=== PATIENT | male | born 1965 | race Caucasian/White ===

== ENCOUNTER → 2016-10-27 | Day surgery (SDC) | payer OTHER ==
[2016-10-14 10:33] VITALS: Ht 182.9 cm; Wt 86.4 kg
[~2016-10-27] VITALS: Ht 182.9 cm; Wt 86.4 kg
[~2016-10-27] MED LIST: LIDOCAINE HCL 2% 2 ML VIAL (20MG/ML) ONE; PROPOFOL IV EMULSION 10 MG/ML 20 ML VIAL IV ONE; SODIUM CHLORIDE 0.9% 500ML 500 ML IV ONE
--- NOTE | 2016-10-27 13:47 | Endo History and Physical ---
History & Physical Date of Service: Oct 27, 2016. Chief Complaint: Screening Referring Physician: Sonny Broussard History of Present Illness 51 yo CM who presents for screening colonoscopy. Past Surgical History Hx Cardiac Surgery: No Hx Internal Defibrillator: No Hx Pacemaker: No Hx Abdominal Surgery: No Hx of Implantable Prosthesis: No Hx Post-Op Nausea and Vomiting: No Hx Cancer Surgery: Yes (FOREHEAD SKIN EXCISION) Hx Thoracic Surgery: No Hx Orthopedic: Yes (RT KNEE MENISCUS REPAIR) Hx Urinary Tract Surgery: No Family History Polyp Social History Smoking Status: Never Smoker Hx Substance Use: No Hx Alcohol Use: Yes (OCCASSIONALLY) Allergies Coded Allergies: No Known Allergies (Unverified , 10/14/16) Current Medications Reported Home Medications Medications Dose Route/Sig Max Daily Dose Days Date Category No Active Prescriptions or Reported Medications Rx Vital Signs Weight (Kilograms): 86.36 Height (Feet): 6 Height (Inches): 0 Date Time Temp Pulse Resp B/P Pulse Ox O2 Delivery O2 Flow Rate FiO2 10/27/16 13:28 36.8 55 18 125/72 99 Room Air Physical Exam General Appearance: WD/WN, no apparent distress Respiratory/Chest: Auscultation: breath sounds normal Cardiovascular: Heart Auscultation: RRR Abdomen: Bowel Sounds: normal Inspection & Palpation: soft, non-distended, no tenderness, guarding & rebound Assessment and Plan Assessment: 51 yo CM who presents for screening colonoscopy. Plan: Proceed with colonoscopy.
--- NOTE | 2016-10-27 14:07 | Discharge Instructions ---
Endoscopy Patient Instructions Date / Procedure(s) Performed Oct 27, 2016. Colonoscopy Allergy Information Coded Allergies: No Known Allergies (Unverified , 10/14/16) Discharge Date / Findings Oct 27, 2016. Colon polyp Medication Instructions Reported Home Medications Medications Dose Route/Sig Max Daily Dose Days Date Category No Active Prescriptions or Reported Medications Rx Provider Instructions Activity Restrictions - No exercising or heavy lifting for 24 hours. - Do not drink alcohol the day of the procedure. - Do not drive a car or operate machinery until the day after the procedure. - Do not make any important decisions or sign important papers in 24 hours after the procedure. Following Day: - Return to full activity which may include returning to work/school. Diet Start your diet with liquids and light foods (jello, soup, juice, toast). Then eat your usual diet if not nauseated. Treatment For Common After Affects For mild abdominal pain, bloating, or excessive gas: - Rest - Eat lightly - Lie on right side Follow-Up Information Follow-up with Sonny Broussard as scheduled Anesthesia Information What You Should Know You have had a procedure that required some medicine to reduce anxiety and discomfort. This treatment is called moderate sedation. After receiving the treatment, you may be sleepy, but you will be able to breathe on your own. The effects of the treatment may last for several hours. Follow these instructions along with Activity/Diet recommendations noted above: * Do NOT do anything where dizziness or clumsiness would be dangerous. * Rest quietly at home today, then you can be up and about tomorrow. * Have a responsible person stay with you the rest of today. * You may have had an I.V. today. If so, you may take the dressing off later today. Recommendations Call your doctor if: * Trouble breathing * Continuous vomiting for more than 24 hours * Temperature above 101 degrees * Severe abdominal pain or bloating * Pain not relieved by pain medicine ordered * There is increased drainage or redness from any incision * A large amount of rectal bleeding greater than 2-3 tablespoons. (If you had a polyp/s removed or have hemorrhoids, a small amount of blood - from the rectum is to be expected.) * You have any unanswered questions or concerns. IN THE EVENT OF A SERIOUS EMERGENCY, GO TO THE NEAREST EMERGENCY ROOM Your discharge instructions were prepared by provider Armando Garg. Patient Instructions Signature Page Terell Isaacs Patient (or Guardian) Signature/Date: I have read and understand the instructions given to me by my caregivers. Caregiver/RN/Doctor Signature/Date: The above-named patient and/or guardian has received patient instructions on this date. + Original Patient Signature Page (only) stays with chart. Please make copy for patient.
--- NOTE | 2016-10-27 14:15 | GI REPORT ---
Procedure Date: 10/27/2016 1:37 PM Procedure: Colonoscopy Indications: Screening for colorectal malignant neoplasm Medicines: Monitored Anesthesia Care Complications: No immediate complications. Estimated Blood Loss: Estimated blood loss: none. Procedure: Pre-Anesthesia Assessment: - Prior to the procedure, a History and Physical was performed, and patient medications and allergies were reviewed. The patient's tolerance of previous anesthesia was also reviewed. The risks and benefits of the procedure and the sedation options and risks were discussed with the patient. All questions were answered, and informed consent was obtained. Prior Anticoagulants: The patient has taken no previous anticoagulant or antiplatelet agents. ASA Grade Assessment: I - A normal, healthy patient. After reviewing the risks and benefits, the patient was deemed in satisfactory condition to undergo the procedure. After I obtained informed consent, the scope was passed under direct vision. Throughout the procedure, the patient's blood pressure, pulse, and oxygen saturations were monitored continuously. The On-site loaner was introduced through the anus and advanced to the terminal ileum. The colonoscopy was performed without difficulty. The patient tolerated the procedure well. The quality of the bowel preparation was good. The terminal ileum, ileocecal valve, appendiceal orifice, and rectum were photographed. Findings: The perianal and digital rectal examinations were normal. Pertinent negatives include normal sphincter tone, no palpable rectal lesions, normal prostate (size, shape, and consistency) and no anal lesion or abnormality was detected. A 7 mm polyp was found in the descending colon. The polyp was sessile. The polyp was removed with a hot snare. Resection and retrieval were complete. The exam was otherwise without abnormality. Impression: - One 7 mm polyp in the descending colon, removed with a hot snare. Resected and retrieved. - The examination was otherwise normal. Recommendation: - Resume previous diet. - Continue present medications. - Repeat colonoscopy for surveillance based on pathology results. - Return to primary care physician as previously scheduled. Armando Garg DO 10/27/2016 2:15:26 PM This report has been signed electronically. Note Initiated On: 10/27/2016 1:37 PM I attest to the content of the Intraoperative Record and orders documented therein, exceptions below
--- NOTE | 2016-10-27 14:34 | Anesthesiology Progress Note ---
Anesthesia Post Op Note Date & Time Oct 27, 2016 at 14:34 Vital Signs Pain Intensity: 0 Vital Signs Past 12 Hours Date Time Temp Pulse Resp B/P Pulse Ox O2 Delivery O2 Flow Rate FiO2 10/27/16 14:25 46 16 109/67 96 Room Air 10/27/16 14:10 59 16 89/57 99 Room Air 10/27/16 13:28 36.8 55 18 125/72 99 Room Air Notes Mental Status: alert / awake / arousable, participated in evaluation Pt Amnestic to Procedure: Yes Nausea / Vomiting: adequately controlled Pain: adequately controlled Airway Patency, RR, SpO2: stable & adequate BP & HR: stable & adequate Hydration State: stable & adequate Anesthetic Complications: no major complications apparent
[2016-10-27 14:40] VITALS: BP 100/76; PULSE 46; O2SAT 98
== END | disposition home or self-care (01) ==
LOC: C.GI 13:08
PROVIDERS: ATTEND Internal Medicine
DX: Z12.11 Encounter for screening for malignant neoplasm of colon (principal); D12.4 Benign neoplasm of descending colon; Z98.890 Other specified postprocedural states; Z68.26 Body mass index [BMI] 26.0-26.9, adult; Z85.828 Personal history of other malignant neoplasm of skin; Z83.71 Family history of colonic polyps

== ENCOUNTER → 2016-11-21 | Outpatient (CLI) | payer OTHER ==
[2016-11-21 15:01] LABS: BLOOD UREA NITROGEN 20 mg/dl (7-18); BUN/CREATININE RATIO 18.2 (10-20); CALCIUM 9.4 mg/dl (8.5-10.1); CARBON DIOXIDE 30 mmol/L (21-32); CHLORIDE 105 mmol/L (98-107); GLUCOSE 101 mg/dl (70-99); POTASSIUM 4.3 mmol/L (3.5-5.1); SODIUM 139 mmol/L (136-145)
== END | disposition home or self-care (01) ==
LOC: C.LABBC 11:52
PROVIDERS: ATTEND Internal Medicine Geriatric Medicine
DX: R00.1 Bradycardia, unspecified (principal)

== ENCOUNTER → 2017-08-06 | Outpatient (CLI) | payer OTHER ==
[2017-08-06 16:04] LABS: BLOOD UREA NITROGEN 21 mg/dl (7-18); CREATININE 0.93 mg/dl (0.60-1.40); GLUCOSE 101 mg/dl (70-99)
[2017-08-06 16:05] LABS: CALCIUM 8.9 mg/dl (8.5-10.1); CARBON DIOXIDE 24 mmol/L (21-32); CHOLESTEROL 166 mg/dl (0-200); LDL CHOLESTEROL CALCULATED 77 mg/dl; POTASSIUM 4.1 mmol/L (3.5-5.1); SODIUM 138 mmol/L (136-145)
== END | disposition home or self-care (01) ==
LOC: C.LABBC 10:26
PROVIDERS: ATTEND Internal Medicine Geriatric Medicine
DX: Z00.00 Encounter for general adult medical examination without abnormal findings (principal); R00.1 Bradycardia, unspecified; E78.5 Hyperlipidemia, unspecified; R35.0 Frequency of micturition

== ENCOUNTER → 2017-09-11 | Outpatient (CLI) | payer OTHER | END | disposition home or self-care (01) | LOC: C.LABBC 10:15 | PROVIDERS: ATTEND Internal Medicine Geriatric Medicine | DX: E78.5 Hyperlipidemia, unspecified (principal); R00.1 Bradycardia, unspecified; R35.0 Frequency of micturition; Z00.00 Encounter for general adult medical examination without abnormal findings ==

== ENCOUNTER → 2017-11-05 | Outpatient (CLI) | payer OTHER | END | disposition home or self-care (01) | LOC: C.LABBC 10:39 | PROVIDERS: ATTEND Urology | DX: R97.20 Elevated prostate specific antigen [PSA] (principal) ==

== ENCOUNTER 2022-01-31 17:59 | Observation (INO) ==
[2022-01-31] MEDS ORDERED: SODIUM CHLORIDE 0.9% 1000ML 1,000 ML IV ONE ×2 (18:06→19:31)
--- NOTE | 2022-01-31 18:06 | ED Triage Note ---
Date of Service January 31, 2022 History of Present Illness This patient was briefly evaluated while in triage. An abbreviated physical exam was performed. This patient is a 56-year-old Male with past medical history of dyslipidemia who presents to the ED for evaluation of extremely sore muscles, difficulty lifting arms, cloudy, dark urine x1, chills, and sweats. Pt. states he worked out hard 2 days ago for the first time in a month. Also having Right great toe pain. Physical Exam VITALS: Vitals are noted on the nurse's note and reviewed by myself. GENERAL: This is a 56 year old male, in no acute distress, nondiaphoretic, well- developed well-nourished. SKIN: The skin was without rashes, erythema, edema, or bruising. There is no tenting of the skin. Capillary refill less than 2 seconds. HEAD: Normocephalic atraumatic. MOUTH: Mucous membranes moist. NECK: Supple without nuchal rigidity. No JVD. MUSCULOSKELETAL: No muscle atrophy, erythema, or edema noted. Full range of motion without joint tenderness in all extremities. Normal gait. NEURO: Patient was alert and oriented to person place and time. No focal neurological deficits. Initial orders for labs and / or imaging were placed and patient was placed in the waiting area until a bed is available. Please see further documentation for the full ED course.
[2022-01-31 19:18] LABS: Appearance Urine Clear (Clear); Bacteria Urine Automated Negative (Negative); Bilirubin Urine Negative (Negative); Blood Urine 3+ (Negative); Color Urine Dark Yellow; Epithelial Cell Urine Auto 20-30 /lpf (0-5); Glucose Urine UA Negative (Negative); Ketones Urine Trace (Negative); Leukocyte Esterase Urine Negative (Negative); Nitrite Urine Negative (Negative); Protein Urine 3+ (Negative); Specific Gravity Urine 1.035 (1.000-1.030); Urobilinogen Urine Negative (Negative)
--- NOTE | 2022-01-31 19:40 | XRay Report ---
XR chest 1V portable CLINICAL HISTORY: Weakness COMPARISON STUDY: Chest radiograph June 14, 2021. FINDINGS: Lung volumes are normal. Lungs are clear. There is no pneumothorax or pleural effusion. Car diac size is normal. Mediastinal contours are normal. There is no evidence for pulmonary edema. IMPRESSION: No acute cardiopulmonary findings. ACT 112: Negative or not required by law. Electronically signed by: Bernardino Hamilton M.D. 01/31/2022 7:39 PM
[2022-01-31] MEDS ORDERED: SODIUM CHLORIDE 0.9% 1000ML 1,000 ML IV SCH (19:45)
[2022-01-31 19:46] LABS: Troponin I High Sensitivity 13.9 pg/ml (0-20)
[2022-01-31 19:48] LABS: BUN Creatinine Ratio 14.2 (10-20); Calcium 8.4 mg/dl (8.5-10.1); Creatinine Clr Calc Pharmacy 81.1 ml/min; Est GFR (African American) 84.3 ml/min; Est GFR (Non-African American) 72.8 ml/min; Potassium 3.8 mmol/L (3.5-5.1)
[2022-01-31 19:50] LABS: Basophils # (auto) 0.01 K/uL (0-0.2); Basophils % (auto) 0.3 %; Hemoglobin 14.1 g/dL (14.0-18.0); Lymphocytes # (auto) 0.49 K/uL (1.2-3.4); Lymphocytes % (auto) 12.7 %; Mean Corpuscular Hemoglobin 29.7 pg (25-34); Mean Corpuscular Hgb Conc 34.4 g/dL (32-36); Mean Corpuscular Volume 86.3 fL (80-100); Mean Platelet Volume 10.5 fL (7.4-10.4); Monocytes # (auto) 0.26 K/uL (0.11-0.59); Monocytes % (auto) 6.8 %; Neutrophils # (auto) 3.09 K/uL (1.4-6.5); Neutrophils % (auto) 80.2 %; Platelet Count 141 K/uL (130-400); RDW Coefficient of Variation 14.2 % (11.5-14.5); RDW Standard Deviation 44.8 fL (36.4-46.3); Red Blood Count 4.75 M/uL (4.7-6.1); White Blood Count 3.85 K/uL (4.8-10.8)
[2022-01-31 20:00] LABS: Albumin Globulin Ratio 1.5 (0.9-2); Bilirubin,Total 0.5 mg/dl (0.2-1.0); Globulin 2.7 gm/dl (2.5-4.0); Total Protein 6.7 gm/dl (6.0-8.3)
--- NOTE | 2022-01-31 20:15 | CT Scan Report ---
CT OF THE ABDOMEN AND PELVIS WITHOUT CONTRAST CLINICAL HISTORY: Left flank pain. Hematuria and fever. COMPARISON STUDY: No previous studies for comparison. TECHNIQUE: Axial images of the abdomen and pelvis were obtained without IV contrast. Images were revi ewed in the axial, sagittal, and coronal planes. Automated exposure control was utilized for the shaun dy. A dose lowering technique was utilized adhering to the principles of ALARA. FINDINGS: Lung bases are unremarkable. No renal, ureteral or bladder calculi are present. There is no hydronephrosis or hydroureter. Mild bladder wall thickening is noted. Evaluation of the remainder of the abdomen and pelvis is suboptimal on this unenhanced exam. Liver, spleen, adrenal glands and panc reas are unremarkable. There is no biliary or pancreatic ductal dilatation. There is no peripancreati c or pericholecystic infiltration. The appendix is normal. There is no evidence for a bowel obstructi on. No lymphadenopathy is present. There is no ascites. No acute fracture or suspicious lesion is jose de jesus ntified within the visualized skeletal structures. IMPRESSION: 1. No urinary calculi or hydronephrosis. 2. Bladder wall thickening, a nonspecific finding which could be correlated with urinalysis. 3. No bowel obstruction. No bowel wall thickening on unenhanced exam. ACT 112: Negative or not required by law. Electronically signed by: Bernardino Hamilton M.D. 01/31/2022 8:12 PM
[2022-01-31] MEDS ORDERED: ACETAMINOPHEN 500 MG TAB PO STA (20:59)
--- NOTE | 2022-01-31 20:59 | Emergency Department Note ---
History of Present Illness General Chief complaint: Illness Stated complaint: SHAKES, MUSCLE ACHES, CLOUDY URINE Time Seen by Provider: 01/31/22 19:23 History of Present Illness Provider complaint: Myalgias Onset (ago): day(s) 2 Maximum Pain Intensity: 2 Associated symptoms: + fever/chills, + malaise and + nausea/vomiting; no cough, no headaches or no shortness of breath 56-year-old male presents emergency department for myalgias. Patient reports that on Thursday he worked out after a long time doing a circuit training/hit class. He states since then he has been having excessive soreness in his back and arms and flank. He also reports he has been having sweating and developed a fever with a T-max of 101. He also reports nausea. Home Medications Medication Instructions Recorded Confirmed Type No Known Home Medications 10/25/21 11/07/21 History Allergies Allergy/AdvReac Type Severity Reaction Status Date / Time No Known Allergies Allergy Verified 11/07/21 08:59 Past Med/Surg History Medical History History of basal cell carcinoma (BCC) History of prostatitis Surgical History H/O Mohs micrographic surgery for skin cancer x2 History of colonoscopy History of tooth extraction S/P knee surgery arthroscopy Family History Brother Melanoma Father Kidney malignancy Other Family history of melanoma Denies family history of Ovarian cancer Prostate cancer Myocardial infarction Breast cancer Colorectal cancer Social History Smoking Status: Never smoker Second Hand Exposure: No; Hx Alcohol Use: Yes Hx Substance Use: No Preferred Language: Bahamian Communication Ability: Effective Visual Impairment: No Limitations Hearing Ability: Normal Trading Specialist Required: No Beliefs That Will Affect Care: None marital status: Current Living Situation: Spouse current occupational status: employed Feels Safe at Home: Yes Dental Care, Regularly: Yes Physical Activity Frequency: 1-2 Times per Week Seatbelt Use: sometimes Sunscreen Use: Yes (sometimes) Assistive Devices: Contacts and Glasses Review of Systems A total of 10 systems reviewed and were otherwise negative Physical Exam Vital Signs Vital Signs - 24 hr 01/31/22 18:03 01/31/22 20:00 01/31/22 20:13 Temperature 38.2 C H 38.3 C H Temperature Source Temporal Artery Scan Oral Pulse Rate 95 H 71 Pulse Rate [Apical] 74 Pulse Rhythm Regular Regular Pulse Rhythm [Apical] Regular Pulse Strength Normal Respiratory Rate 18 18 18 Respiratory Effort / Characteristics Non-Labored Non-Labored Spontaneous Respiratory Depth Normal Normal Blood Pressure 145/94 H Blood Pressure [Right Arm] 128/81 Blood Pressure Mean 111 Blood Pressure Mean [Right Arm] 96 Pulse Oximetry 95 95 97 Oxygen Delivery Method Room Air Room Air Room Air Sepsis Recent Fever Within 48 Hours No Sepsis New/Unexplained Change in Mental Status No Sepsis Action Taken by Nursing No Action Required Physical Exam GENERAL: He is oriented to person, place, and time. He appears well-developed and well-nourished. He does not appear distressed. HENT: Exam performed. - Head: Normocephalic and atraumatic. - Right Ear: External ear normal. No mastoid tenderness. - Left Ear: External ear normal. No mastoid tenderness. - Mouth/Throat: The oropharynx is clear and moist. No trismus in the jaw. No dental abscesses or uvula swelling. No oropharyngeal exudate or tonsillar abscesses. EYES: Conjunctivae and EOM are normal. Pupils are equal, round, and reactive to light. Right eye exhibits no discharge. Left eye exhibits no discharge. No scleral icterus. NECK: Normal range of motion. Neck supple. No JVD present. No spinous process tenderness present. No carotid bruit present. No rigidity. No tracheal deviation and normal range of motion present. No Brudzinski's sign and no Kernig's sign n oted. CV: Normal rate, regular rhythm, normal heart sounds and intact distal pulses. There is no peripheral edema. Palpable radial pulses bue. PULM/CHEST: Effort normal and breath sounds normal. No respiratory distress. No stridor. He has no wheezes. He has no rales. - Chest Wall: He exhibits no tenderness. ABD: The abdomen is soft. Bowel sounds are normal. He has no distension. No mass is present. There is no tenderness. There is no rebound, no guarding, no Peralta's sign and no tenderness at McBurney's point. Rovsig negative. Left- sided CVA tenderness. NEURO: He is alert and oriented to person, place, and time. He has normal strength. No cranial nerve deficit or sensory deficit. Coordination and gait normal. GCS eye subscore is 4. GCS verbal subscore is 5. GCS motor subscore is 6. Cerebellar tests wnl. SKIN: Skin is warm and dry. He is not diaphoretic. PSYCH: He has a normal mood and affect. Behavior is normal. Judgment and thought content normal. Course Course 1922: The patient was evaluated in room A10. A complete history and physical exam was performed Cardiac monitoring: An order was placed for continuous cardiac monitoring. The monitor shows a rate of 70 with sinus rhythm 2100: Labs show leukopenia of 3.85. Creatinine kinase is 10,122. Urinalysis shows no signs of infection. Imaging is within normal limits. [facility]. Administered Medications Discontinued Medications Sodium Chloride (Nss 1000ml) 1,000 mls @ 999 mls/hr IV .Q1H1M ONE Stop: 01/31/22 19:06 Last Infusion: 01/31/22 20:44 Dose: 0 mls/hr Documented by: [id number] Admin: 01/31/22 19:25 Dose: 999 mls/hr Documented by: [id number] Sodium Chloride (Nss 1000ml) 1,000 mls @ 999 mls/hr IV .Q1H1M ONE Stop: 01/31/22 20:31 Last Infusion: 01/31/22 20:36 Dose: 0 mls/hr Documented by: [id number] Admin: 01/31/22 20:36 Dose: 999 mls/hr Documented by: [id number] Medical Decision Making Laboratory Data Result diagrams: 01/31/22 19:05 01/31/22 19:05 Lab Results 01/31/22 01/31/22 01/31/22 Range/Units 19:05 19:05 19:36 WBC 3.85 L (4.8-10.8) K/uL RBC 4.75 (4.7-6.1) M/uL Hgb 14.1 (14.0-18.0) g/dL Hct 41.0 L (42-52) % MCV 86.3 (80-100) fL MCH 29.7 (25-34) pg MCHC 34.4 (32-36) g/dL RDW Std Deviation 44.8 (36.4-46.3) fL RDW Coeff of Melissa 14.2 (11.5-14.5) % Plt Count 141 (130-400) K/uL MPV 10.5 H (7.4-10.4) fL Immature Gran % (Auto) 0.0 % Neut % (Auto) 80.2 % Lymph % (Auto) 12.7 % [place] % (Auto) 6.8 % Eos % (Auto) 0.0 % Baso % (Auto) 0.3 % Neut # (Auto) 3.09 (1.4-6.5) K/uL Lymph # (Auto) 0.49 L (1.2-3.4) K/uL [place] # (Auto) 0.26 (0.11-0.59) K/uL Eos # (Auto) 0.00 (0-0.5) K/uL Baso # (Auto) 0.01 (0-0.2) K/uL Immature Gran # (Auto) 0.00 (0.00-0.02) K/uL Sodium 132 L (136-145) mmol/L Potassium 3.8 (3.5-5.1) mmol/L Chloride 99 (98-107) mmol/L Carbon Dioxide 25 (21-32) mmol/L Anion Gap 8 (3-11) BUN 16 (6-23) mg/dl Creatinine 1.13 (0.6-1.4) mg/dl Est Cr Clr Drug Dosing 81.1 ml/min Est GFR ( Amer) 84.3 ml/min Est GFR (Non-Af Amer) 72.8 ml/min BUN/Creatinine Ratio 14.2 (10-20) Glucose 102 H (70-99(Fasting)) mg/dl Lactate 0.5 (0.4-2.0) mmol/L Calcium 8.4 L (8.5-10.1) mg/dl Total Bilirubin 0.5 (0.2-1.0) mg/dl AST 156 H (13-39) U/L ALT 54 H (7-52) U/L Alkaline Phosphatase 51 (34-104) U/L Total Creatine Kinase 56370 H (30-223) U/L Troponin I High Sens 13.9 (0-20) pg/ml Total Protein 6.7 (6.0-8.3) gm/dl Albumin 4.0 (3.4-5.0) gm/dl Globulin 2.7 (2.5-4.0) gm/dl Albumin/Globulin Ratio 1.5 (0.9-2) Procalcitonin (0-0.5) ng/ml Urine Color Urine Appearance (Clear) Urine pH (4.5-7.5) Ur Specific [place] (1.000-1.030) Urine Protein (Negative) Urine Glucose (UA) (Negative) Urine Ketones (Negative) Urine Blood (Negative) Urine Nitrite (Negative) Urine Bilirubin (Negative) Urine Urobilinogen (Negative) Ur Leukocyte Esterase (Negative) Urine WBC (Auto) (0-5) /hpf Urine RBC (Auto) (0-4) /hpf U Hyaline Cast (Auto) (0-5) /lpf U Epithel Cells (Auto) (0-5) /lpf Urine Bacteria (Auto) (Negative) 01/31/22 01/31/22 Range/Units 19:36 Unknown WBC (4.8-10.8) K/uL RBC (4.7-6.1) M/uL Hgb (14.0-18.0) g/dL Hct (42-52) % MCV (80-100) fL MCH (25-34) pg MCHC (32-36) g/dL RDW Std Deviation (36.4-46.3) fL RDW Coeff of Melissa (11.5-14.5) % Plt Count (130-400) K/uL MPV (7.4-10.4) fL Immature Gran % (Auto) % Neut % (Auto) % Lymph % (Auto) % [place] % (Auto) % Eos % (Auto) % Baso % (Auto) % Neut # (Auto) (1.4-6.5) K/uL Lymph # (Auto) (1.2-3.4) K/uL [place] # (Auto) (0.11-0.59) K/uL Eos # (Auto) (0-0.5) K/uL Baso # (Auto) (0-0.2) K/uL Immature Gran # (Auto) (0.00-0.02) K/uL Sodium (136-145) mmol/L Potassium (3.5-5.1) mmol/L Chloride (98-107) mmol/L Carbon Dioxide (21-32) mmol/L Anion Gap (3-11) BUN (6-23) mg/dl Creatinine (0.6-1.4) mg/dl Est Cr Clr Drug Dosing ml/min Est GFR ( Amer) ml/min Est GFR (Non-Af Amer) ml/min BUN/Creatinine Ratio (10-20) Glucose (70-99(Fasting)) mg/dl Lactate (0.4-2.0) mmol/L Calcium (8.5-10.1) mg/dl Total Bilirubin (0.2-1.0) mg/dl AST (13-39) U/L ALT (7-52) U/L Alkaline Phosphatase (34-104) U/L Total Creatine Kinase (30-223) U/L Troponin I High Sens (0-20) pg/ml Total Protein (6.0-8.3) gm/dl Albumin (3.4-5.0) gm/dl Globulin (2.5-4.0) gm/dl Albumin/Globulin Ratio (0.9-2) Procalcitonin 0.19 (0-0.5) ng/ml Urine Color Dark Yellow Urine Appearance Clear (Clear) Urine pH 6.0 (4.5-7.5) Ur Specific [place] 1.035 H (1.000-1.030) Urine Protein 3+ H (Negative) Urine Glucose (UA) Negative (Negative) Urine Ketones Trace H (Negative) Urine Blood 3+ H (Negative) Urine Nitrite Negative (Negative) Urine Bilirubin Negative (Negative) Urine Urobilinogen Negative (Negative) Ur Leukocyte Esterase Negative (Negative) Urine WBC (Auto) 1-5 (0-5) /hpf Urine RBC (Auto) 10-30 H (0-4) /hpf U Hyaline Cast (Auto) 1-5 (0-5) /lpf U Epithel Cells (Auto) 20-30 H (0-5) /lpf Urine Bacteria (Auto) Negative (Negative) Imaging Data Radiologist's Impression: Chest X-Ray 01/31/22 18:06 XR chest 1V portable CLINICAL HISTORY: Weakness COMPARISON STUDY: Chest radiograph June 14, 2021. FINDINGS: Lung volumes are normal. Lungs are clear. There is no pneumothorax or pleural effusion. Cardiac size is normal. Mediastinal contours are normal. There is no evidence for pulmonary edema. IMPRESSION: No acute cardiopulmonary findings. ACT 112: Negative or not required by law. Electronically signed by: Bernardino Hamilton M.D. 01/31/2022 7:39 PM Abdomen/Pelvis CT 01/31/22 19:32 CT OF THE ABDOMEN AND PELVIS WITHOUT CONTRAST CLINICAL HISTORY: Left flank pain. Hematuria and fever. COMPARISON STUDY: No previous studies for comparison. TECHNIQUE: Axial images of the abdomen and pelvis were obtained without IV contrast. Images were reviewed in the axial, sagittal, and coronal planes. Automated exposure control was utilized for the study. A dose lowering techniqu e was utilized adhering to the principles of ALARA. FINDINGS: Lung bases are unremarkable. No renal, ureteral or bladder calculi are present. There is no hydronephrosis or hydroureter. Mild bladder wall thickening is noted. Evaluation of the remainder of the abdomen and pelvis is suboptimal on this unenhanced exam. Liver, spleen, adrenal glands and pancreas are unremarkab le. There is no biliary or pancreatic ductal dilatation. There is no peripancreatic or pericholecystic infiltration. The appendix is normal. There is no evidence for a bowel obstruction. No lymphadenopathy is present. There is no ascites. No acute fracture or suspicious lesion is identified within the visualized skeletal structures. IMPRESSION: 1. No urinary calculi or hydronephrosis. 2. Bladder wall thickening, a nonspecific finding which could be correlated with urinalysis. 3. No bowel obstruction. No bowel wall thickening on unenhanced exam. ACT 112: Negative or not required by law. Electronically signed by: Bernardino Hamilton M.D. 01/31/2022 8:12 PM ECG Data Indication: + other (myalgias) Rate (beats per minute): 75 Rhythm: + normal sinus ECG Intervals/blocks: + Normal QRS, + Normal AL and + Normal QT-c ECG ST segments: + Normal ST segments MDM Narrative Labs show leukopenia of 3.85. Creatinine kinase is 10,122. Urinalysis shows no signs of infection. Imaging is within normal limits. [facility] team notified. Impression & Plan Rhabdomyolysis Discharge Plan Visit Data Chief Complaint: Illness Stated Complaint: SHAKES, MUSCLE ACHES, CLOUDY URINE Discharge Problem: Rhabdomyolysis Patient Disposition: Admitted As Inpatient Forms Stand Alone Forms: [facility] Prescriptions Prescriptions: No Action No Known Home Medications RF: 0 Referrals Referrals: Pro,Agusto Aguilar MD [Primary Care Provider] -
[2022-01-31 21:09] LABS: Influenza A virus by PCR Negative (Neg); Influenza B virus by PCR Negative (Neg); RSV by PCR Negative (Neg); SARS CoV2 RNA(COVID-19) InHosp NEGATIVE (Negative)
[2022-01-31] MEDS ORDERED: SODIUM CHLORIDE 0.9% 1,000 ML IV SCH (21:45)
--- NOTE | 2022-01-31 22:57 | History & Physical Report ---
Date of Service January 31, 2022 Assessment & Plan (1) Rhabdomyolysis: Plan: 56 y/o M who denies active medical issues. He developed generalized muscle pain, lower back pain and a low-grade fever after a 1 hour cross-fit workout one day prior. He contacted an MD friend and was advised to attend the ER. Initial labs are notable for mild hyponatremia and rhabdomyolysis with a CK of 10,528. He received IVF in the ER and the CK was repeated a few hours later, but did not improve. He is admitted for IVF. He had a temp of 100.9 on arrival. 1) Rhabdomyolysis - IVF, trend CK 2) Hyponatremia - possibly due to free water intake - IVF, trend BMP 3) fever - no concern for infection at present as we do not have a focus and this can occur with rhabdo - monitor for now Full code - Lovenox prophylaxis Total time for this admit including review of labs, mes, imaging, records - discussion with pt and ER attending 34 min (2) Hyponatremia: History of Present Illness Chief Complaint: Muscle aches and fever Primary Care Provider: Agusto Araujo MD 56 y/o M who denies active medical issues. He developed generalized muscle pain, lower back pain and a low-grade fever after a 1 hour cross-fit workout one day prior. He contacted an MD friend and was advised to attend the ER. Initial labs are notable for mild hyponatremia and rhabdomyolysis with a CK of 10,528. He received IVF in the ER and the CK was repeated a few hours later, but did not improve. He is admitted for IVF. He had a temp of 100.9 on arrival. PMH: No active medical issues. Surgical: Limited to arthroscopy of knee Social: Does not smoke. States he can drink alcohol in excess when he goes out, but does not drink frequently. He is in the real estate business. Family: Both parents at an advanced age. No specific cause provided. Allergies Allergy/AdvReac Type Severity Reaction Status Date / Time No Known Allergies Allergy Verified 01/31/22 21:26 Home Medications Medication Instructions Recorded Confirmed Type acetaminophen 500 mg tablet 1,000 mg PO QID PRN 01/31/22 01/31/22 History (Tylenol Extra Strength) Past Med/Surg History Medical History History of basal cell carcinoma (BCC) History of prostatitis Surgical History H/O Mohs micrographic surgery for skin cancer x2 History of colonoscopy History of tooth extraction S/P knee surgery arthroscopy Family History Brother Melanoma Father Kidney malignancy Other Family history of melanoma Denies family history of Ovarian cancer Prostate cancer Myocardial infarction Breast cancer Colorectal cancer Social History Smoking Status: Never smoker Second Hand Exposure: No; Hx Alcohol Use: Yes Hx Substance Use: No Preferred Language: Lao Communication Ability: Effective Visual Impairment: No Limitations Hearing Ability: Normal Wool Grower Required: No Beliefs That Will Affect Care: None marital status: Current Living Situation: Spouse current occupational status: employed Feels Safe at Home: Yes Dental Care, Regularly: Yes Physical Activity Frequency: 1-2 Times per Week Seatbelt Use: sometimes Sunscreen Use: Yes (sometimes) Assistive Devices: Contacts and Glasses Review of Systems Review of Systems: Gen: Denies fevers, night sweats, rigors, fatigue, malaise, weight loss/gain ENT: Denies congestion, throat pain, hearing loss Eyes: Denies acute visual changes CV: Denies CP, palpitations Pulmonary: Denies SOB, cough, wheezing GI: Denies N/V, diarrhea, constipation Neuro: Denies acute or unilateral weakness, acute gait impairment, headache or acute visual changes Musculoskeletal: Generalized muscle pain and lower back pain Endocrine: Denies polydipsia, polyuria Skin: Denies acute rashes or ulcers Physical Exam Physical Exam: General: AAO x 3, no distress ENT: No erythema or exudates, no thrush Eyes: LAKHWINDER, EOMI Head and neck: Normocephalic, atraumatic, No JVD, neck is supple. Chest/heart: Nontender, S1,2, RRR, no murmurs, no gallops Lungs: CTAB, no wheezing or crackles Abdomen: Nontender, nondistended, BS+ Neuro: AAO x 3, speech is clear, no unilateral weakness or loss of sensation, coordination intact Musculoskeletal: No joint inflammation, muscle tenderness, FROM Skin: No acute rashes or ulcers Extremities: No clubbing, cyanosis, edema Results & Data Results & Data ([facility]) Vital Signs (Past 12 Hours) Vital Signs Temp Pulse Pulse Resp BP BP Pulse Ox 01/31/22 22:30 72 24 01/31/22 20:41 69 19 137/90 99 01/31/22 20:30 70 20 97 01/31/22 20:13 71 18 97 01/31/22 20:08 71 24 128/81 01/31/22 20:00 100.9 F H 74 18 128/81 95 01/31/22 18:03 100.8 F H 95 H 18 145/94 H 95 Code Status & VTE Plan VTE Prophylaxis Plan VTE Prophylaxis will be ordered: Yes PG Care Time/CCT Total # of Minutes Spent Total Time Spent with Patient: Total time spent is greater than 50% in coordination of care (as documented) at patient's floor/unit and/or counseling patient: Coding Level of Care Code 50158 Initial Inpt Care Lvl 2 Diagnoses Rhabdomyolysis M62.82 Rhabdomyolysis type: non-traumatic Hyponatremia E87.1 (1) Rhabdomyolysis Rhabdomyolysis type: non-traumatic Qualified Code(s): M62.82 - Rhabdomyolysis
[2022-01-31] MEDS ORDERED: ZOLPIDEM TARTRATE 5 MG TAB PO PRN (23:51)
[2022-02-01 00:26] LABS: BUN Creatinine Ratio 12.8 (10-20); Est GFR (African American) 88.1 ml/min; Potassium 3.6 mmol/L (3.5-5.1)
[2022-02-01] MEDS: SODIUM CHLORIDE 0.9% 1,000 ML IV SCH ×3 (00:36→08:47)
[2022-02-01] MEDS: ACETAMINOPHEN 500 MG TAB PO PRN ×2 (03:46→12:11)
--- NOTE | 2022-02-01 07:47 | Hospitalist Progress Note ---
Date of Service February 01, 2022 Assessment & Plan (1) Rhabdomyolysis: Plan: 56 y/o M who denies active medical issues. He developed generalized muscle pain, lower back pain and a low-grade fever after a 1 hour cross-fit workout one day prior. He contacted an MD friend and was advised to attend the ER. Initial labs are notable for mild hyponatremia and rhabdomyolysis with a CK of 10,528. He received IVF in the ER and the CK was repeated a few hours later, but did not improve. He is admitted for IVF. He had a temp of 100.9 on arrival. 1) Rhabdomyolysis - IVF, trend CK 2) Hyponatremia - possibly due to free water intake - IVF, trend BMP 3) fever - no concern for infection at present as we do not have a focus and this can occur with rhabdo - monitor for now Full code - Lovenox prophylaxis Total time for this admit including review of labs, mes, imaging, records - discussion with pt and ER attending 34 min (2) Hyponatremia: Admission and Anticipated Discharge Date Admission Date: January 31, 2022 Results & Data Results & Data ([facility]) Vital Signs (Past 12 Hours) Vital Signs Temp Pulse Pulse Pulse Resp BP BP 02/01/22 04:09 37.6 C H 02/01/22 03:40 39.5 C H 02/01/22 00:05 36.8 C 62 16 132/80 01/31/22 23:36 78 20 108/56 L 01/31/22 22:30 72 24 01/31/22 20:41 69 19 137/90 01/31/22 20:30 70 20 01/31/22 20:13 71 18 01/31/22 20:08 71 24 128/81 01/31/22 20:00 38.3 C H 74 18 128/81 Pulse Ox 02/01/22 04:09 02/01/22 03:40 02/01/22 00:05 97 01/31/22 23:36 95 01/31/22 22:30 01/31/22 20:41 99 01/31/22 20:30 97 01/31/22 20:13 97 01/31/22 20:08 01/31/22 20:00 95 Laboratory Results 02/01/22 01/31/22 01/31/22 Range/Units 07:09 Unknown 23:54 WBC (4.8-10.8) K/uL RBC (4.7-6.1) M/uL Hgb (14.0-18.0) g/dL Hct (42-52) % MCV (80-100) fL MCH (25-34) pg MCHC (32-36) g/dL RDW Std Deviation (36.4-46.3) fL RDW Coeff of Melissa (11.5-14.5) % Plt Count (130-400) K/uL MPV (7.4-10.4) fL Immature Gran % (Auto) % Neut % (Auto) % Lymph % (Auto) % [place] % (Auto) % Eos % (Auto) % Baso % (Auto) % Neut # (Auto) (1.4-6.5) K/uL Lymph # (Auto) (1.2-3.4) K/uL [place] # (Auto) (0.11-0.59) K/uL Eos # (Auto) (0-0.5) K/uL Baso # (Auto) (0-0.2) K/uL Immature Gran # (Auto) (0.00-0.02) K/uL Sodium Pending 138 (136-145) mmol/L Potassium Pending 3.6 (3.5-5.1) mmol/L Chloride Pending 107 (98-107) mmol/L Carbon Dioxide Pending 28 (21-32) mmol/L Anion Gap Pending 3 (3-11) BUN Pending 14 (6-23) mg/dl Creatinine Pending 1.09 (0.6-1.4) mg/dl Est Cr Clr Drug Dosing Pending 84.0 ml/min Est GFR ( Amer) Pending 88.1 ml/min Est GFR (Non-Af Amer) Pending 76.0 ml/min BUN/Creatinine Ratio Pending 12.8 (10-20) Glucose Pending 142 H (70-99(Fasting)) mg/dl Lactate (0.4-2.0) mmol/L Calcium Pending 8.0 L (8.5-10.1) mg/dl Total Bilirubin (0.2-1.0) mg/dl AST (13-39) U/L ALT (7-52) U/L Alkaline Phosphatase (34-104) U/L Total Creatine Kinase Pending 04135 H (30-223) U/L Troponin I High Sens (0-20) pg/ml Total Protein (6.0-8.3) gm/dl Albumin (3.4-5.0) gm/dl Globulin (2.5-4.0) gm/dl Albumin/Globulin Ratio (0.9-2) Procalcitonin (0-0.5) ng/ml Urine Color Dark Yellow Urine Appearance Clear (Clear) Urine pH 6.0 (4.5-7.5) Ur Specific [place] 1.035 H (1.000-1.030) Urine Protein 3+ H (Negative) Urine Glucose (UA) Negative (Negative) Urine Ketones Trace H (Negative) Urine Blood 3+ H (Negative) Urine Nitrite Negative (Negative) Urine Bilirubin Negative (Negative) Urine Urobilinogen Negative (Negative) Ur Leukocyte Esterase Negative (Negative) Urine WBC (Auto) 1-5 (0-5) /hpf Urine RBC (Auto) 10-30 H (0-4) /hpf U Hyaline Cast (Auto) 1-5 (0-5) /lpf U Epithel Cells (Auto) 20-30 H (0-5) /lpf Urine Bacteria (Auto) Negative (Negative) SARS-CoV-2 (PCR) (Negative) Influenza Type A (PCR) (Neg) Influenza Type B (PCR) (Neg) RSV (RT-PCR) (Neg) 01/31/22 01/31/22 01/31/22 Range/Units 21:55 19:36 19:36 WBC (4.8-10.8) K/uL RBC (4.7-6.1) M/uL Hgb (14.0-18.0) g/dL Hct (42-52) % MCV (80-100) fL MCH (25-34) pg MCHC (32-36) g/dL RDW Std Deviation (36.4-46.3) fL RDW Coeff of Melissa (11.5-14.5) % Plt Count (130-400) K/uL MPV (7.4-10.4) fL Immature Gran % (Auto) % Neut % (Auto) % Lymph % (Auto) % [place] % (Auto) % Eos % (Auto) % Baso % (Auto) % Neut # (Auto) (1.4-6.5) K/uL Lymph # (Auto) (1.2-3.4) K/uL [place] # (Auto) (0.11-0.59) K/uL Eos # (Auto) (0-0.5) K/uL Baso # (Auto) (0-0.2) K/uL Immature Gran # (Auto) (0.00-0.02) K/uL Sodium (136-145) mmol/L Potassium (3.5-5.1) mmol/L Chloride (98-107) mmol/L Carbon Dioxide (21-32) mmol/L Anion Gap (3-11) BUN (6-23) mg/dl Creatinine (0.6-1.4) mg/dl Est Cr Clr Drug Dosing ml/min Est GFR ( Amer) ml/min Est GFR (Non-Af Amer) ml/min BUN/Creatinine Ratio (10-20) Glucose (70-99(Fasting)) mg/dl Lactate (0.4-2.0) mmol/L Calcium (8.5-10.1) mg/dl Total Bilirubin (0.2-1.0) mg/dl AST (13-39) U/L ALT (7-52) U/L Alkaline Phosphatase (34-104) U/L Total Creatine Kinase 83182 H (30-223) U/L Troponin I High Sens (0-20) pg/ml Total Protein (6.0-8.3) gm/dl Albumin (3.4-5.0) gm/dl Globulin (2.5-4.0) gm/dl Albumin/Globulin Ratio (0.9-2) Procalcitonin 0.19 (0-0.5) ng/ml Urine Color Urine Appearance (Clear) Urine pH (4.5-7.5) Ur Specific [place] (1.000-1.030) Urine Protein (Negative) Urine Glucose (UA) (Negative) Urine Ketones (Negative) Urine Blood (Negative) Urine Nitrite (Negative) Urine Bilirubin (Negative) Urine Urobilinogen (Negative) Ur Leukocyte Esterase (Negative) Urine WBC (Auto) (0-5) /hpf Urine RBC (Auto) (0-4) /hpf U Hyaline Cast (Auto) (0-5) /lpf U Epithel Cells (Auto) (0-5) /lpf Urine Bacteria (Auto) (Negative) SARS-CoV-2 (PCR) NEGATIVE (Negative) Influenza Type A (PCR) Negative (Neg) Influenza Type B (PCR) Negative (Neg) RSV (RT-PCR) Negative (Neg) 01/31/22 01/31/22 01/31/22 Range/Units 19:36 19:05 19:05 WBC 3.85 L (4.8-10.8) K/uL RBC 4.75 (4.7-6.1) M/uL Hgb 14.1 (14.0-18.0) g/dL Hct 41.0 L (42-52) % MCV 86.3 (80-100) fL MCH 29.7 (25-34) pg MCHC 34.4 (32-36) g/dL RDW Std Deviation 44.8 (36.4-46.3) fL RDW Coeff of Melissa 14.2 (11.5-14.5) % Plt Count 141 (130-400) K/uL MPV 10.5 H (7.4-10.4) fL Immature Gran % (Auto) 0.0 % Neut % (Auto) 80.2 % Lymph % (Auto) 12.7 % [place] % (Auto) 6.8 % Eos % (Auto) 0.0 % Baso % (Auto) 0.3 % Neut # (Auto) 3.09 (1.4-6.5) K/uL Lymph # (Auto) 0.49 L (1.2-3.4) K/uL [place] # (Auto) 0.26 (0.11-0.59) K/uL Eos # (Auto) 0.00 (0-0.5) K/uL Baso # (Auto) 0.01 (0-0.2) K/uL Immature Gran # (Auto) 0.00 (0.00-0.02) K/uL Sodium 132 L (136-145) mmol/L Potassium 3.8 (3.5-5.1) mmol/L Chloride 99 (98-107) mmol/L Carbon Dioxide 25 (21-32) mmol/L Anion Gap 8 (3-11) BUN 16 (6-23) mg/dl Creatinine 1.13 (0.6-1.4) mg/dl Est Cr Clr Drug Dosing 81.1 ml/min Est GFR ( Amer) 84.3 ml/min Est GFR (Non-Af Amer) 72.8 ml/min BUN/Creatinine Ratio 14.2 (10-20) Glucose 102 H (70-99(Fasting)) mg/dl Lactate 0.5 (0.4-2.0) mmol/L Calcium 8.4 L (8.5-10.1) mg/dl Total Bilirubin 0.5 (0.2-1.0) mg/dl AST 156 H (13-39) U/L ALT 54 H (7-52) U/L Alkaline Phosphatase 51 (34-104) U/L Total Creatine Kinase 56654 H (30-223) U/L Troponin I High Sens 13.9 (0-20) pg/ml Total Protein 6.7 (6.0-8.3) gm/dl Albumin 4.0 (3.4-5.0) gm/dl Globulin 2.7 (2.5-4.0) gm/dl Albumin/Globulin Ratio 1.5 (0.9-2) Procalcitonin (0-0.5) ng/ml Urine Color Urine Appearance (Clear) Urine pH (4.5-7.5) Ur Specific [place] (1.000-1.030) Urine Protein (Negative) Urine Glucose (UA) (Negative) Urine Ketones (Negative) Urine Blood (Negative) Urine Nitrite (Negative) Urine Bilirubin (Negative) Urine Urobilinogen (Negative) Ur Leukocyte Esterase (Negative) Urine WBC (Auto) (0-5) /hpf Urine RBC (Auto) (0-4) /hpf U Hyaline Cast (Auto) (0-5) /lpf U Epithel Cells (Auto) (0-5) /lpf Urine Bacteria (Auto) (Negative) SARS-CoV-2 (PCR) (Negative) Influenza Type A (PCR) (Neg) Influenza Type B (PCR) (Neg) RSV (RT-PCR) (Neg) PG Care Time/CCT Total # of Minutes Spent Total Time Spent with Patient: Total time spent is greater than 50% in coordination of care (as documented) at patient's floor/unit and/or counseling patient: Coding Diagnoses Rhabdomyolysis M62.82 Rhabdomyolysis type: non-traumatic Hyponatremia E87.1 (1) Rhabdomyolysis Rhabdomyolysis type: non-traumatic Qualified Code(s): M62.82 - Rhabdomyolysis
[2022-02-01 07:55] LABS: Anion Gap 4 (3-11); Blood Urea Nitrogen 12 mg/dl (6-23); Calcium 7.7 mg/dl (8.5-10.1); Carbon Dioxide 27 mmol/L (21-32); Chloride 107 mmol/L (98-107); Creatinine Clr Calc Pharmacy 91.6 ml/min; Est GFR (African American) 97.8 ml/min; Est GFR (Non-African American) 84.4 ml/min; Glucose 104 mg/dl (70-99(Fasting)); Sodium 138 mmol/L (136-145)
[2022-02-01 08:00] LABS: Creatine Kinase 11475 U/L (30-223)
[2022-02-01 08:48] LABS: Albumin Level 3.4 gm/dl (3.4-5.0); Bilirubin,Total 0.4 mg/dl (0.2-1.0); Total Protein 5.9 gm/dl (6.0-8.3)
[2022-02-01] MEDS ORDERED: STAT IV STA (09:05)
--- NOTE | 2022-02-01 09:08 | Discharge Summary ---
Date of Service February 01, 2022 Admission HPI Per Admitting Provider 56 y/o M who denies active medical issues. He developed generalized muscle pain, lower back pain and a low-grade fever after a 1 hour cross-fit workout one day prior. He contacted an MD friend and was advised to attend the ER. Initial labs are notable for mild hyponatremia and rhabdomyolysis with a CK of 10,528. He received IVF in the ER and the CK was repeated a few hours later, but did not improve. He is admitted for IVF. He had a temp of 100.9 on arrival. PMH: No active medical issues. Surgical: Limited to arthroscopy of knee Social: Does not smoke. States he can drink alcohol in excess when he goes out, but does not drink frequently. He is in the real estate business. Family: Both parents at an advanced age. No specific cause provided. Admission Exam Per Admitting Provider General: AAO x 3, no distress ENT: No erythema or exudates, no thrush Eyes: LAKHWINDER, EOMI Head and neck: Normocephalic, atraumatic, No JVD, neck is supple. Chest/heart: Nontender, S1,2, RRR, no murmurs, no gallops Lungs: CTAB, no wheezing or crackles Abdomen: Nontender, nondistended, BS+ Neuro: AAO x 3, speech is clear, no unilateral weakness or loss of sensation, coordination intact Musculoskeletal: No joint inflammation, muscle tenderness, FROM Skin: No acute rashes or ulcers Extremities: No clubbing, cyanosis, edema Principal Diagnosis Rhabdomylosis Discharge Exam General: AAO x 3, sitting up in bed, no distress HEENT: head normocephalic, atraumatic, eyes anicteric, pupils equal, trachea midline without deviation, no lymphadenopathy Resp: CTAB, no w/c/r, on room air CV: RRR, no m/r/g, no calf edema or tenderness, cap refill wnl GI: +BS, soft, nontender : no simpson, voiding spontaneously, urinal with yellow slightly cloudy urine MSK/Neuro: AOx3, cooperative and calm, speech clear, no focal deficit or loss of sensation, coordination intact improvement in ROM b/l UE and ability to lift above shoulders today, slight tenderness to posterior UE improved, no evidence for compartment syndrome or edema, pulses palpable Skin: warm, dry Extremities: No clubbing, cyanosis, edema Discharge Data Allergies Allergy/AdvReac Type Severity Reaction Status Date / Time No Known Allergies Allergy Verified 01/31/22 21:26 Consultations 01/31/22 20:40 ED Decision to Admit Stat Ordered Studies Chest X-Ray 01/31/22 18:06 XR chest 1V portable CLINICAL HISTORY: Weakness COMPARISON STUDY: Chest radiograph June 14, 2021. FINDINGS: Lung volumes are normal. Lungs are clear. There is no pneumothorax or pleural effusion. Cardiac size is normal. Mediastinal contours are normal. There is no evidence for pulmonary edema. IMPRESSION: No acute cardiopulmonary findings. ACT 112: Negative or not required by law. Electronically signed by: Bernardino Hamilton M.D. 01/31/2022 7:39 PM Abdomen/Pelvis CT 01/31/22 19:32 CT OF THE ABDOMEN AND PELVIS WITHOUT CONTRAST CLINICAL HISTORY: Left flank pain. Hematuria and fever. COMPARISON STUDY: No previous studies for comparison. TECHNIQUE: Axial images of the abdomen and pelvis were obtained without IV contrast. Images were reviewed in the axial, sagittal, and coronal planes. Automated exposure control was utilized for the study. A dose lowering technique was utilized adhering to the principles of ALARA. FINDINGS: Lung bases are unremarkable. No renal, ureteral or bladder calculi are present. There is no hydronephrosis or hydroureter. Mild bladder wall thickening is noted. Evaluation of the remainder of the abdomen and pelvis is suboptimal on this unenhanced exam. Liver, spleen, adrenal glands and pancreas are unremarkable. There is no biliary or pancreatic ductal dilatation. There is no peripancreatic or pericholecystic infiltration. The appendix is normal. There is no evidence for a bowel obstruction. No lymphadenopathy is present. There is no ascites. No acute fracture or suspicious lesion is identified within the visualized skeletal structures. IMPRESSION: 1. No urinary calculi or hydronephrosis. 2. Bladder wall thickening, a nonspecific finding which could be correlated with urinalysis. 3. No bowel obstruction. No bowel wall thickening on unenhanced exam. ACT 112: Negative or not required by law. Electronically signed by: Bernardino Hamilton M.D. 01/31/2022 8:12 PM Hospital Course (1) Rhabdomyolysis: 56 y/o M without significant medical history was working out/1hr cross fit on Thursday and developed upper arm/back pain and generalized muscle pain on , presented to the ER and was found to have rhabdomyolysis CK 10,528 IVF provided in ER, few hours passed and CK repeated but was not improved Temp 100.9 on arrival, again last evening but nothing since that time -- could have temp from rhabdo. No elevation in WBC/cough/urinary symptoms/abdominal discomfort Na low on admit, resolved with IVF Ordered total additional 3L IVF , repeat CK 11k however could take 1-3 days to peak. Making good urine, clearing up in the urinal, no evidence for stones on CTAP UA without evidence for infection (3+ blood, 10-30 rbc, 20-30epi) no blood color/tea color and clearing on observation in urinal Given WBC 3.85k/borderline Plt 140 and transaminitis, checked Lyme/anaplasmosis/babesiosis --> negative Did discuss CK can sometimes take 1-3 days to peak, but improvement in symptoms and wanting to go home rather than stay the night -- discussed due to persistent elevation in CK/LFTs however patient wanting to discharge and can continue to push Gatorade at discharge Discussed warning signs with at bedside and to return to ER if those occur Did have negative flu/RSV/COVID and doesn't appear to have any cough/sob/sputum production. UA without nitrates or bacteria/leuk esterase Cr remains stable Instructed to Avoid ALL ALCOHOL in meantime given transaminitis Lab slips for monitoring LFTs/CK on Thursday Pending LFTs, could consider mono or other viral cause however does not fit typical picture, could consider checking CMV if remains elevated. Sent for hep panel prior to dc To continue to monitor fever at home -- last temp 37.8c BLood cultures drawn on admit -- ngtd procal 0.19 CXR negative for acute process CTAP without acute process, did note some bladder wall thickening however no evidence for infection or burning/frequency reported Lovenox SQ utilized for DVT prophylaxis while inpatient (2) Hyponatremia: Total Time Total Time Spent Total Time Spent (In Minutes): 55 Discharge Plan Discharge Items Patient Disposition: Home - Self-Care Reason For Visit: RHABDOMYELYSIS Discharge Diagnosis: Rhabdomylosis Goals: You have been hospitalized for an acute medical problem. During your stay at [facility], we have made an effort to correct the problem that brought you to the hospital while keeping you as comfortable as possible. Medications were used to bring your condition under control and your discharge instructions will include directions for any medications you should take after leaving the hospital. Please make sure you see your Primary Care Provider as part of your follow up plan. Activity: As commented below Activity Comment: no heavy lifting/exercise for 4-6 weeks Non-emergency contact: Primary Care Provider Call non-emergency contact if: you have any medication questions, your pain is not controlled and you have a fever Follow-up/Referrals: Agusto Araujo MD [Primary Care Provider] - Diet: Regular Ambulatory Orders: Creatine Kinase (Routine) Timeframe: 20220204 Location: Determined by Patient Ordered By: Isha Lares Comprehensive Metabolic Panel (Routine) Timeframe: 20220204 Location: Determined by Patient Ordered By: Isha Lares Addtl Attending Provider Instructions: You have been hospitalized for rhabdomyolysis (muscle breakdown), likely caused by excessive exercise in the setting of not having exercised like that in over a month. You have been provided IV fluids which are the mainstay of treatment and you do not have any evidence for kidney failure at this time and urine is lightening in color. Sometimes this level (CK, creatinine kinase, level of muscle breakdown) takes 1-3 days to peak but you are having improvement in symptoms and can push Gatorade at discharge and monitor your urine output.Avoid alcohol use as well as this could lead to dehydration/worsening symptoms and would like your liver function testing a chance to normalize. Please monitor your temperatures at home to monitor your fever curve. If continued fevers, please contact your PCP sooner or return to the ER. We did check a Lyme and Anaplasmosis/tick labs and these did not show any evidence for infection. Do NOT exceed 3gm of Tylenol in a 24 hour period of time. Please follow up with primary care provider in the next 7-10 days to monitor your progress. I have provided lab slips for repeat labs on Thursday. Please return to the ER with any worsening pain, increased swelling, darkened/blood in urine, continued elevated fevers or fever >103F, or for any other symptoms concerning for you. It has been a pleasure being a part of the medical team providing for you while you have been in the hospital. Take care! Pending Studies at Discharge: Yes Studies:: blood/urine cx -- no growth to date peripheral blood smear -- no evidence for anaplasmosis or babesiosis on preliminary hep panel, EBV Stand-Alone Forms: My [facility], Smoking Cessation Medications and DC Order Prescriptions: Changed acetaminophen [Tylenol Extra Strength] 500 mg Tablet 1,000 mg PO TID PRN (Reason: Pain) Qty: 0 RF: 0 Discharge Orders: Discharge Order (Routine); Ordered 02/01/22 Ordered By: Isha Lares Admission Data Admit Date/Time: 01/31/22 22:43 Attending Provider: Duke Funez Admit Provider: Johnny Mendoza Primary Care Provider: Agusto Araujo Other Providers: Johnny Mendoza Coding Level of Care Code D/C DAY MANAGEMENT >30 MINS Diagnoses Rhabdomyolysis M62.82 Rhabdomyolysis type: non-traumatic Hyponatremia E87.1
[2022-02-01] MEDS ORDERED: CALCIUM GLUCONATE 10% 1,000 MG in DEXTROSE 5% 50 ML IV ONE (09:15)
[2022-02-01 10:59] LABS: Lyme Ab IgG w/WB Rflx Negative (Negative)
[2022-02-01 11:01] LABS: Lyme Ab IgM w/WB Rflx Negative (Negative)
[2022-02-01] MEDS ORDERED: ACETAMINOPHEN 500 MG TAB PO PRN (12:21)
[2022-02-01 13:27] LABS: BUN Creatinine Ratio 13.8 (10-20); Calcium 8.1 mg/dl (8.5-10.1); Creatinine Clr Calc Pharmacy 114.5 ml/min; Est GFR (African American) 116.6 ml/min; Est GFR (Non-African American) 100.6 ml/min; Potassium 4.1 mmol/L (3.5-5.1)
[2022-02-01 13:28] LABS: Albumin Level 3.3 gm/dl (3.4-5.0); Bilirubin,Total 0.5 mg/dl (0.2-1.0); Total Protein 5.7 gm/dl (6.0-8.3)
--- NOTE | 2022-02-01 20:31 | Emergency Department Note ---
ED Visit Note Received a telephone call from the patient today while working clinically. The patient was admitted to the hospital last night for rhabdo and discharged from the [facility] today. The patient states he was discharged but he was still having fevers. Patient states since coming home he has been having increasing fevers. He is asking if he should return to the emergency department. I explained to him that I would recommend he come to the emergency department because it is unusual for fevers to continue as well as after reviewing his labs that his CK levels keep going up. Patient states he does not want to come up to the hospital unless absolutley necessary so he will reevaluate how he is feeling after taking some Tylenol and drinking fluids. : Rhabdomyolysis Qualifiers: Rhabdomyolysis type: non-traumatic Qualified Code(s): M62.82 - Rhabdomyolysis
--- NOTE | 2022-02-01 23:08 | Electrocardiogram Report ---
Test Reason : Blood Pressure : / mmHG Vent. Rate : 075 BPM Atrial Rate : 075 BPM P-R Int : 146 ms QRS Dur : 096 ms QT Int : 370 ms P-R-T Axes : 039 051 054 degrees QTc Int : 413 ms Normal sinus rhythm Possible Left atrial enlargement Incomplete right bundle branch block Borderline ECG No previous ECGs available Confirmed by Alfonso Rojas ([id number]) on 02/01/2022 11:08:22 PM Referred By: REFERRED SELF Confirmed By:Alfonso Rojas
[2022-02-05 11:49] LABS: EBV Nuclear Ag Antibody <18.00 U/mL
[2022-02-05 15:45] LABS: HBSAG NON-REACTIVE (NON-REACTIVE); Hepatitis A Antibody IgM NON-REACTIVE (NON-REACTIVE); Hepatitis B Core Antibody IgM NON-REACTIVE (NON-REACTIVE)
== END 2022-02-01 14:52 | disposition home or self-care (01) ==
LOC: ED 17:59 → SUATTDRO 22:43 → 3E 22:43 → INTOOBSV 22:43 → 3E 23:36